=== PATIENT | male | born 1995 | race Caucasian/White ===

== ENCOUNTER 2018-06-08 01:32 | Emergency (ER) | payer SELFPAY ==
[~2018-06-08] VITALS: Ht 172.7 cm; Wt 81.6 kg
[2018-06-08 01:49] VITALS: BP 110/76
[2018-06-08 02:20] LABS: Urine Bacteria NONE SEEN /hpf (None Seen); Urine Blood Negative /uL (Negative); Urine Mucus FEW (None Seen); Urine Specific Gravity 1.012 (1.001-1.035); Urine WBC <1 /hpf (0 - 3)
[2018-06-08 02:23] LABS: Alcohol, Urine < 3.0 mg/dL (0-5); Amphetamine Screen, Urine NEGATIVE (NEGATIVE); Barbiturate Scree,Urine NEGATIVE (NEGATIVE); Benzodiazephine Screen, Urine NEGATIVE (NEGATIVE); Cannabinoid Screen, Urine POSITIVE (NEGATIVE); Cocaine Screen, Urine NEGATIVE (NEGATIVE); Opiate Scree,Urine NEGATIVE (NEGATIVE); Phencyclidine Screen, Urine NEGATIVE (NEGATIVE)
== END 2018-06-08 02:28 | disposition left against medical advice (07) ==
LOC: EDUNIT# 01:32 → ER 01:32 → EDBD 01:32 → ER 02:28
DX: R44.3 Hallucinations, unspecified (principal); Z53.21 Procedure and treatment not carried out due to patient leaving prior to being seen by health care provider
CPT/HCPCS: 80307; 81001

== ENCOUNTER 2021-12-17 19:38 | Emergency (ER) | payer SELFPAY ==
[~2021-12-17] VITALS: Ht 175.3 cm; Wt 81.8 kg
[2021-12-17 21:39] VITALS: BP 142/70
== END 2021-12-18 03:11 | disposition home or self-care (01) ==
LOC: ER 19:38
DX: S06.0X0A Concussion without loss of consciousness, initial encounter (principal); F17.210 Nicotine dependence, cigarettes, uncomplicated; F12.10 Cannabis abuse, uncomplicated; Y04.8XXA Assault by other bodily force, initial encounter; Y93.89 Activity, other specified; Y92.89 Other specified places as the place of occurrence of the external cause; Y99.8 Other external cause status